=== PATIENT | male | born 1975 | race Caucasian/White ===

== ENCOUNTER 2016-10-01 13:08 | Emergency (ER) | payer BC ==
[2016-10-01 13:41] VITALS: BP 129/85
[2016-10-01] MEDS ORDERED: Acetaminophen/HYDROcodone 325-5 MG Tab PO ONE (14:24)
--- NOTE | 2016-10-01 14:48 | EDM.PDOC ---
ED HPI GENERAL MEDICAL PROBLEM - General Chief Complaint: Lower Extremity Injury/Pain Stated Complaint: LOWER LEG PAIN Time Seen by Provider: 10/01/16 13:55 Source of Information: Reports: Patient History Limitations: Reports: No Limitations - History of Present Illness INITIAL COMMENTS - FREE TEXT/NARRATIVE: Patient is a 41 year old male who presents to the E.D. complaining of pain to the right calf that started last night. Their were no precipitation factors. States he has history of varicose veins to both his lower legs. The right calf became swollen with increased pain incomparison to the left. He did massage the area only making it worse. Swelling has diminished with arrival to the E.D. Denies redness, increased warmth, wounds, cp, sob, n/t, or any additional complaints. He has no history of DVT/PE. Right Lower Leg Pain Score (Numeric/FACES): 6 - Related Data Allergies Allergy/AdvReac Type Severity Reaction Status Date / Time bee pollen Allergy Swelling Verified 08/25/14 09:16 pregabalin [From Lyrica] Allergy Hallucinati Verified 08/25/14 09:16 ons Home Meds: Home Meds Esomeprazole [NexIUM] 20 mg PO DAILY 08/25/14 [History] Cetirizine [ZyrTEC] 10 mg PO DAILY 10/01/16 [History] ClonazePAM [KlonoPIN] 0.75 mg PO BID 10/01/16 [History] traZODone 75 mg PO DAILY 10/01/16 [History] Past Medical History - Past Health History Medical/Surgical History: Denies Medical/Surgical History Psychiatric History: Reports: ADD, Anxiety Dermatologic History: Reports: Cellulitis - Past Surgical History GI Surgical History: Reports: Cholecystectomy Other Musculoskeletal Surgeries/Procedures:: knee surgery x7 and carpal tunnel surgery Social & Family History - Tobacco Use Smoking Status *Q: Former Smoker Used Tobacco, but Quit: Yes Month Tobacco Last Used: 24 Second Hand Smoke Exposure: No - Caffeine Use Caffeine Use: Reports: Coffee, Energy Drinks - Recreational Drug Use Recreational Drug Use: No Review of Systems - Review of Systems Review Of Systems: ROS reveals no pertinent complaints other than HPI. ED EXAM, GENERAL - Physical Exam Exam: See Below Exam Limited By: No Limitations General Appearance: Alert, WD/WN, No Apparent Distress Ears: Hearing Grossly Normal Nose: Normal Inspection Throat/Mouth: Normal Voice, No Airway Compromise Neck: Normal Inspection, Supple Respiratory/Chest: No Respiratory Distress, Lungs Clear, Normal Breath Sounds, No Accessory Muscle Use Cardiovascular: Normal Peripheral Pulses, Regular Rate, Rhythm, No Rub Peripheral Pulses: 2+: Radial (L), Posterior Tibial (R), Dorsalis Pedis (R) Back Exam: Normal Inspection, Full Range of Motion Extremities: Normal Inspection, Normal Range of Motion, No Pedal Edema, Normal Capillary Refill, Leg Pain (right medial/posterior calf. No swelling, redness, wounds, sensory/motor changes. No difference in comparison to the left. Minimal pain with palpation. ) Neurological: Alert, Oriented, CN II-XII Intact, Normal Cognition, No Motor/ Sensory Deficits Psychiatric: Normal Affect, Normal Mood Skin Exam: Warm, Dry, Intact, Normal Color Course - Vital Signs Last Recorded V/S: Last Vital Signs Temp 98 F 10/01/16 13:38 Pulse 73 10/01/16 13:38 Resp 16 10/01/16 13:38 BP 129/85 10/01/16 13:38 Pulse Ox 100 10/01/16 13:38 - Orders/Labs/Meds Labs: Laboratory Tests 10/01/16 10/01/16 10/01/16 Range/Units 14:41 14:41 14:41 WBC 8.74 (4.23-9.07) K/mm3 RBC 5.12 (4.63-6.08) M/mm3 Hgb 15.3 (13.7-17.5) gm/L Hct 44.0 (40.1-51.0) % MCV 85.9 (79.0-92.2) fl MCH 29.9 (25.7-32.2) pg MCHC 34.8 (32.2-35.5) g/dl RDW Std Deviation 40.5 (35.1-43.9) fL Plt Count 277 (163-337) K/mm3 MPV 9.6 (9.4-12.3) fl Neut % (Auto) 62.0 (34.0-67.9) % Lymph % (Auto) 27.3 (21.8-53.1) % [place] % (Auto) 7.6 (5.3-12.2) % Eos % (Auto) 2.4 (0.8-7.0) Baso % (Auto) 0.5 (0.1-1.2) % Neut # (Auto) 5.42 H (1.78-5.38) K/mm3 Lymph # (Auto) 2.39 (1.32-3.57) K/mm3 [place] # (Auto) 0.66 (0.30-0.82) K/mm3 Eos # (Auto) 0.21 (0.04-0.54) K/mm3 Baso # (Auto) 0.04 (0.01-0.08) K/mm3 D-Dimer, Quantitative < 0.19 L (0.19-0.59) mg/L Sodium 142 (136-145) mEq/L Potassium 3.8 (3.5-5.1) mEq/L Chloride 105 (98-107) mEq/L Carbon Dioxide 27 (21-32) mEq/L Anion Gap 13.8 (5-15) BUN 14 (7-18) mg/dL Creatinine 0.8 (0.7-1.3) mg/dL Est Cr Clr Drug Dosing 134.72 mL/min Estimated GFR (MDRD) > 60 (>60) mL/min BUN/Creatinine Ratio 17.5 (14-18) Glucose 91 (74-106) mg/dL Calcium 9.2 (8.5-10.1) mg/dL Meds: Medications Discontinued Medications Generic Name Dose Route Start Last Admin Trade Name Freq PRN Reason Stop Dose Admin Hydrocodone Bitart/Acetaminophen 1 tab 10/01/16 14:24 10/01/16 14:31 [place] 325-5 Mg PO 10/01/16 14:25 1 tab ONETIME ONE Administration - Re-Assessments/Exams Free Text/Narrative Re-Assessment/Exam: Ordered CBC, chem 14, CRP, and d-dimer. For pain [place] 53 25. 10/01/16 15:31 Labs reviewed: Sodium 142, potassium 3.8, CO2 27, AG 13.8, creatinine 0.8, d-dimer less than 0.19, white blood cell count 8.74, platelet count 277, hemoglobin 15.3,. Will discharge patient home with instructions as documented. Patient is not have a DVT. Most likely etiology current complaint is varicose veins. At this point we'll go ahead and provide crutches due to increasing pain with ambulation. Ramo wrap to be applied. Departure - Departure Time of Disposition: 15:32 Disposition: Home, Self-Care 01 Condition: Good Clinical Impression: Right calf pain - Discharge Information Instructions: Crutch Use, [id number] Referrals: Lin Mckeon DO [Primary Care Provider] - Forms: ED Department Discharge Additional Instructions: Utilize crutches to ambulate. Suggest being not weightbearing for the next 3 days. Thereafter advance as tolerated. Utilize Tylenol and ibuprofen in alternating fashion for pain. Apply ice to the affected area as needed. Follow- up with PCP this coming week if symptoms are not resolving. Return to the ED for any new or worsening symptoms.
== END 2016-10-01 15:45 | disposition home or self-care (01) ==
LOC: JD.ED 13:08
DX: M79.661 Pain in right lower leg (principal); F41.9 Anxiety disorder, unspecified; Z90.49 Acquired absence of other specified parts of digestive tract; Z87.891 Personal history of nicotine dependence; Z98.890 Other specified postprocedural states; Z79.899 Other long term (current) drug therapy; Z88.8 Allergy status to other drugs, medicaments and biological substances; Z91.030 Bee allergy status
CPT/HCPCS: 36415; 80048; 85025; 85379; 99283; A9270

== ENCOUNTER 2018-12-16 08:53 | Emergency (ER) | payer BC ==
[2018-12-16 09:07] VITALS: BP 142/93; PULSE 81
[2018-12-16] MEDS ORDERED: HYDROmorphone 1 MG/ML Syringe IM ONE (09:18)
[2018-12-16] MEDS ORDERED: Ketorolac 60 MG/2 ML SDV IM ONE (09:18)
--- NOTE | 2018-12-16 09:25 | EDM.PDOC ---
ED HPI GENERAL MEDICAL PROBLEM - General Chief Complaint: Upper Extremity Injury/Pain Stated Complaint: LEFT SHOULDER PAIN Time Seen by Provider: 12/16/18 09:03 Source of Information: Reports: Patient History Limitations: Reports: No Limitations - History of Present Illness INITIAL COMMENTS - FREE TEXT/NARRATIVE: The patient presents with left shoulder pain. He says this started yesterday morning when he woke up. He did some stretching and he went to work and it was okay. This morning he has severe pain and any movement makes it worse. He did not injure it in any way. 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 He says this is normally his good shoulder. He has had trouble with his right shoulder before. He has no fever, chills, cough, chest pain or shortness of breath. He has no numbness or weakness in his shoulder. He says it just hurts when he moves it. He is right handed. Onset: Gradual Duration: Day(s): Location: Reports: Upper Extremity, Left (Shoulder) Quality: Reports: Sharp Severity: Severe Improves with: Reports: Immobilization Worsens with: Reports: Movement Context: Denies: Trauma Associated Symptoms: Reports: No Other Symptoms Left Shoulder Pain Score (Numeric/FACES): 7 - Related Data Allergies Allergy/AdvReac Type Severity Reaction Status Date / Time bee pollen Allergy Swelling Verified 12/16/18 09:14 pregabalin [From Lyrica] Allergy Hallucinati Verified 12/16/18 09:14 ons Home Meds: Home Meds Esomeprazole [NexIUM] 20 mg PO DAILY 08/25/14 [History] traZODone 75 mg PO DAILY 10/01/16 [History] Hydrocodone/Acetaminophen [Hydrocodon-Acetaminophen 5-325] 1 - 2 each PO Q6HR PRN #10 tablet 12/16/18 [Rx] Methylphenidate HCl [Ritalin] 10 mg PO DAILY 12/16/18 [History] Multivitamin [Multivitamins] 1 tab PO DAILY 12/16/18 [History] Naproxen [Naprosyn] 500 mg PO Q12HR PRN #30 tab 12/16/18 [Rx] Past Medical History - Past Health History Medical/Surgical History: Denies Medical/Surgical History Psychiatric History: Reports: ADD, Anxiety Dermatologic History: Reports: Cellulitis - Past Surgical History GI Surgical History: Reports: Cholecystectomy Other GI Surgeries/Procedures: polynaidal cyst removal Other Musculoskeletal Surgeries/Procedures:: knee surgery x7 and carpal tunnel surgery Social & Family History - Family History Family Medical History: Noncontributory - Caffeine Use Caffeine Use: Reports: Coffee, Energy Drinks, Soda - Recreational Drug Use Recreational Drug Use: No Review of Systems - Review of Systems Review Of Systems: See Below Constitutional: Reports: No Symptoms Eyes: Reports: No Symptoms Ears: Reports: No Symptoms Nose: Reports: No Symptoms Mouth/Throat: Reports: No Symptoms Respiratory: Reports: No Symptoms Cardiovascular: Reports: No Symptoms GI/Abdominal: Reports: No Symptoms Genitourinary: Reports: No Symptoms Musculoskeletal: Reports: Shoulder Pain (Left) Neurological: Reports: No Symptoms ED EXAM, GENERAL - Physical Exam Exam: See Below Exam Limited By: No Limitations General Appearance: Alert, No Apparent Distress Ears: Normal External Exam Nose: Normal Inspection Head: Atraumatic, Normocephalic Neck: Normal Inspection Respiratory/Chest: No Respiratory Distress Extremities: Other (Pain upon palpation to the top of the shoulder and lateral left shoulder. 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 Motion very limited due to pain.) Course - Vital Signs Last Recorded V/S: Last Vital Signs Temp 97.9 F 12/16/18 09:04 Pulse 81 12/16/18 09:04 Resp 16 12/16/18 09:04 BP 142/93 H 12/16/18 09:04 Pulse Ox 100 12/16/18 09:04 - Orders/Labs/Meds Meds: Medications Discontinued Medications Generic Name Dose Route Start Last Admin Trade Name Deidre PRN Reason Stop Dose Admin Hydromorphone HCl 1 mg 12/16/18 09:18 12/16/18 09:39 Dilaudid IM 12/16/18 09:19 1 mg ONETIME ONE Administration Ketorolac Tromethamine 60 mg 12/16/18 09:18 12/16/18 09:39 Toradol IM 12/16/18 09:19 60 mg ONETIME ONE Administration - Re-Assessments/Exams Free Text/Narrative Re-Assessment/Exam: 12/16/18 09:28 I ordered dilaudid 1mg IM, toradol 60mg IM and an x-ray. 12/16/18 10:38 His x-ray looks good. I will refer him to OT and Dr Becerril and give him something for pain and antiinflammatory. Departure - Departure Time of Disposition: 10:40 Disposition: Home, Self-Care 01 Condition: Good Clinical Impression: Left shoulder strain Qualifiers: Encounter type: initial encounter Qualified Code(s): S46.912A - Strain of unspecified muscle, fascia and tendon at shoulder and upper arm level, left arm , initial encounter - Discharge Information *PRESCRIPTION DRUG MONITORING PROGRAM REVIEWED*: No *COPY OF PRESCRIPTION DRUG MONITORING REPORT IN PATIENT FOREST: No Prescriptions: Hydrocodone/Acetaminophen [Hydrocodon-Acetaminophen 5-325] 1 - 2 each PO Q6HR PRN #10 tablet PRN Reason: Pain Naproxen [Naprosyn] 500 mg PO Q12HR PRN #30 tab PRN Reason: Pain Referrals: PCP,None [Primary Care Provider] - Kwasi Becerril MD [Physician] - 1 Week Forms: ED Department Discharge Additional Instructions: Ice your shoulder for 15 minutes 3 times per day for 2 days. Take the naprosyn every 12 hours as needed for pain. If that does not help, try the hydrocodone. Please return if you are worse. Follow up with Dr Becerril within 1 to 2 weeks.
--- NOTE | 2018-12-16 10:31 | CR ---
Left shoulder: Three views of the left shoulder were obtained Comparison: No prior shoulder imaging. Acromioclavicular joint and glenohumeral joint appear within normal limits. No fracture or other bony abnormality is identified. Impression: 1. Nothing acute is appreciated on left shoulder study. Diagnostic code #1
== END 2018-12-16 10:53 | disposition home or self-care (01) ==
LOC: JD.ED 08:53
DX: S46.912A Strain of unspecified muscle, fascia and tendon at shoulder and upper arm level, left arm, initial encounter (principal); F41.9 Anxiety disorder, unspecified; Z91.030 Bee allergy status; Z88.8 Allergy status to other drugs, medicaments and biological substances; Z79.899 Other long term (current) drug therapy; X58.XXXA Exposure to other specified factors, initial encounter
CPT/HCPCS: 73030; 96372; 99283; J1170; J1885

== ENCOUNTER 2020-07-11 09:34 | Emergency (ER) | payer BC ==
--- NOTE | 2020-07-11 09:45 | EDM.PDOC ---
ED HPI GENERAL MEDICAL PROBLEM - General Chief Complaint: Upper Extremity Injury/Pain Stated Complaint: DISLOCATED RT SHOULDER Time Seen by Provider: 07/11/20 09:45 Source of Information: Reports: Patient History Limitations: Reports: No Limitations - History of Present Illness INITIAL COMMENTS - FREE TEXT/NARRATIVE: 45-year-old male presents to the ED in the accompaniment of his . He reports severe pain right shoulder. States that he has dislocated the right shoulder once in the past. He states that it has occurred after sleeping very deeply and suffered a spontaneous anterior dislocation of his right shoulder in the past. He awoke around 3:00 this morning with severe pain right shoulder and had to sit up in the easy chair the rest the night. He is unable to abduct the right shoulder at all. The right shoulder is not had any previous surgery. No recent injuries. Denies numbness tingling into his right hand. Associated nausea related to the pain and near syncope. No history of seizure disorder. Patient does present to the ED with his right arm in a sling. Onset: Today, Sudden Onset Date: 07/11/20 Onset Time: 03:00 Duration: Hour(s):, Constant, Getting Worse Location: Reports: Upper Extremity, Right (Right shoulder pain anteriorly.) Quality: Reports: Ache, Throbbing Severity: Moderate (8 out of 10.) Improves with: Reports: Rest Worsens with: Reports: Other (Any attempt to abduct the shoulder increase the pain severely.) Context: Denies: Activity, Exercise, Lifting, Sick Contact, Trauma, Other Associated Symptoms: Reports: No Other Symptoms. Denies: Confusion, Chest Pain, Cough, cough w sputum, Diaphoresis, Fever/Chills, Headaches, Loss of Appetite, Malaise, Nausea/Vomiting, Rash, Seizure, Shortness of Breath, Syncope Treatments APPLICATIONS SUPPORT SPECIALIST: Reports: Other (see below) (None.) Right Shoulder Pain Score (Numeric/FACES): 9 - Related Data Allergies Allergy/AdvReac Type Severity Reaction Status Date / Time bee pollen Allergy Swelling Verified 07/11/20 09:40 pregabalin [From Lyrica] Allergy Hallucinati Verified 07/11/20 09:40 ons Home Meds: Home Meds Esomeprazole [NexIUM] 20 mg PO DAILY 08/25/14 [History] traZODone 100 mg PO BEDTIME 10/01/16 [History] Methylphenidate HCl [Ritalin] 36 mg PO DAILY 12/16/18 [History] Multivitamin [Multivitamins] 1 tab PO DAILY 12/16/18 [History] oxyCODONE HCl/Acetaminophen [Percocet 5-325 mg Tablet] 1 - 2 each PO Q4H PRN #20 tablet 07/11/20 [Rx] Past Medical History - Past Health History Medical/Surgical History: Denies Medical/Surgical History Psychiatric History: Reports: ADD, Anxiety, Other (See Below) (Chronic insomnia) Dermatologic History: Reports: Cellulitis - Past Surgical History GI Surgical History: Reports: Cholecystectomy Other GI Surgeries/Procedures: polynaidal cyst removal Other Musculoskeletal Surgeries/Procedures:: knee surgery x7 and carpal tunnel surgery Social & Family History - Family History Family Medical History: No Pertinent Family History - Caffeine Use Caffeine Use: Reports: Coffee, Energy Drinks, Soda - Living Situation & Occupation Living situation: Reports: Occupation: Employed Review of Systems - Review of Systems Review Of Systems: See Below Constitutional: Denies: Chills, Diaphoresis, Fever, Weakness, Other Eyes: Reports: No Symptoms Ears: Reports: No Symptoms Nose: Reports: No Symptoms Mouth/Throat: Reports: No Symptoms Respiratory: Reports: No Symptoms Cardiovascular: Reports: No Symptoms GI/Abdominal: Reports: No Symptoms Genitourinary: Reports: No Symptoms Musculoskeletal: Reports: Other (Currently suffering severe pain right shoulder.) Skin: Reports: No Symptoms Neurological: Reports: Syncope (Near syncope due to the severity of the pain in his right shoulder this morning.). Denies: Confusion, Dizziness, Headache, Numbness, Tingling Psychiatric: Reports: Anxiety, Other (History of attention deficit disorder. History of chronic insomnia.) ED EXAM, GENERAL - Physical Exam Exam: See Below Exam Limited By: No Limitations General Appearance: Alert, WD/WN, Moderate Distress, Other (Temperature is 36.1. Heart rate 74 and sinus. Respiratory was 18 with O2 sats of 100% room air. BP 153/85.) Eye Exam: Bilateral Eye: Normal Inspection (No blepharal pallor or scleral icterus.), PERRL Throat/Mouth: Normal Inspection, Normal Lips, Normal Oropharynx Head: Atraumatic, Normocephalic Neck: Normal Inspection, Supple, Non-Tender, Full Range of Motion. No: Carotid Bruit, Lymphadenopathy (L), Lymphadenopathy (R) Respiratory/Chest: No Respiratory Distress, Lungs Clear, Normal Breath Sounds, No Accessory Muscle Use Cardiovascular: Normal Peripheral Pulses, Regular Rate, Rhythm, No Edema, No Gallop, No Murmur, No Rub Peripheral Pulses: 3+: Carotid (L), Carotid (R), Radial (L), Radial (R) GI/Abdominal: Normal Bowel Sounds, Soft, Non-Tender, No Organomegaly, No Distention, Pelvis Stable Extremities: Other (He attends the ED with his right arm in a sling. He does have some fullness of the anterior aspect of the right shoulder. Clinically does not appear to be dislocated. Possibly subluxed.) Neurological: Alert, Oriented, CN II-XII Intact, Normal Cognition Psychiatric: Normal Affect, Normal Mood Skin Exam: Warm, Dry, Intact, Normal Color, No Rash Course - Vital Signs Last Recorded V/S: Last Vital Signs Temp 36.4 C 07/11/20 14:53 Pulse 63 07/11/20 14:53 Resp 12 07/11/20 14:53 BP 134/93 H 07/11/20 14:53 Pulse Ox 99 07/11/20 14:53 - Orders/Labs/Meds Meds: Medications Discontinued Medications Generic Name Dose Route Start Last Admin Trade Name Deidre PRN Reason Stop Dose Admin Bupivacaine HCl 10 ml 07/11/20 13:53 07/11/20 13:55 Bupivacaine 0.5% 10 Ml Sdv INJECT 07/11/20 13:54 10 ml ONETIME ONE Administration Diazepam 2.5 mg 07/11/20 11:29 07/11/20 11:56 Diazepam 10 Mg/2 Ml Syringe IVPUSH 07/11/20 11:30 2.5 mg ONETIME ONE Administration Hydromorphone HCl 0.5 mg 07/11/20 09:49 07/11/20 10:03 Hydromorphone 0.5 Mg/0.5 Ml Syringe IVPUSH 07/11/20 09:50 0.5 mg ONETIME ONE Administration Hydromorphone HCl 0.5 mg 07/11/20 10:35 07/11/20 10:38 Hydromorphone 0.5 Mg/0.5 Ml Syringe IVPUSH 07/11/20 10:36 0.5 mg ONETIME ONE Administration Hydromorphone HCl 1 mg 07/11/20 11:29 07/11/20 11:54 Hydromorphone 1 Mg/Ml Syringe IVPUSH 07/11/20 11:30 1 mg ONETIME ONE Administration Dextrose/Sodium Chloride 1,000 mls @ 150 mls/hr 07/11/20 10:00 07/11/20 10:05 Dextrose 5%-Normal Saline IV 150 mls/hr ASDIRECTED [facility] Administration Metoclopramide HCl 7.5 mg 07/11/20 09:49 07/11/20 10:00 Metoclopramide 10 Mg/2 Ml Sdv IVPUSH 07/11/20 09:50 7.5 mg ONETIME ONE Administration Propofol Confirm 07/11/20 13:43 Propofol 200 Mg/20 Ml Sdv Administered 07/11/20 13:44 Dose 200 [email or web address] - Radiology Interpretation Free Text/Narrative:: 45-year-old male presents to the ED with severe right shoulder pain. He is questioning whether or not he is dislocated. He still wearing his T-shirt and is in a sling at the time of exam. He states he woke with severe pain right shoulder about 3:00 this morning. It has been dislocated once in the past. He was unable to abduct his shoulder at home. On exam here he has good radial pulses. Denies any paresthesias below the elbow. Significant pain right anterior shoulder with fullness appreciated on examination through his T-shirt. Does not clinically it appeared to be dislocated. It may be subluxed. Plan IV D5 normal saline at 150 mils per hour. Dilaudid 0.5 mg IV for pain relief with Reglan 7.5 mg IV. Three-view x-ray of the right shoulder to be obtained. - Re-Assessments/Exams Free Text/Narrative Re-Assessment/Exam: 07/11/20 10:56: I discussed the findings of the x-ray with the patient. There was no evidence of shoulder dislocation but it may well be subluxed as it appears that he has a chronic rotator cuff tear. There is increased space between the acromion and the humeral head. There is minimal degenerative change at the acromioclavicular joint. Plan will be to let the Dilaudid that he is currently received work and then will attempt to slowly raise both arms to 90 degrees and hope that the shoulder slips back into place. If this fails we will have to call anesthesia to provide propofol for brief anesthesia. 07/11/20 11:30 patient is still experiencing too much pain to try reduction of his subluxed right shoulder. I suspect it is impinged on the glenoid labrum due to the severity of pain that he is experiencing. Plan repeat Dilaudid 0.5 mg IV with Valium 2.5 mg IV. 07/11/20 12:25 attempt to reduce this right shoulder without the aid of an anesthetic did not meet with any success. Patient had significant pain throughout the range of motion up to 90 degrees of flexion of the shoulder joint when lying supine. It appears that he may well have a piece of the glenoid labrum underneath the portion of the humeral head to be causing such severe pain. I will therefore call anesthesia to see if they can provide some propofol to allow appropriate reduction of suspected subluxated shoulder. 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 Chandrashivam Kuhn. Patient received propofol intravenously which provided satisfactory sedation so that I could put the patient's right shoulder through normal range of motion. There was no evidence of impingement with normal range of motion once I put the patient through normal range of motion. I injected the anterior aspect of the humerus joint with 10 cc of 0.5% bupivacaine topically provide relief of pain in the right shoulder. 07/11/20 14:41 patient is awake and oriented to person place and time. He states that he still has significant pain in his right shoulder with movement I sharp stabbing pain. Patient will be placed back in his sling. 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 Patient will be given Percocet tabs from the [employer] machine 5/325 mg strength 1 or 2 every 4-6 hours as needed for pain relief x20. Advise follow-up with Dr. Becerril orthopedic surgeon in regards to having arthroscopic surgery right shoulder for suspect glenoid labral tear. Suspect associated rotator cuff tear. Departure - Departure Time of Disposition: 14:38 Disposition: Home, Self-Care 01 Condition: Fair Clinical Impression: Shoulder subluxation, right Qualifiers: Encounter type: initial encounter Qualified Code(s): S43.001A - Unspecified subluxation of right shoulder joint, initial encounter - Discharge Information *PRESCRIPTION DRUG MONITORING PROGRAM REVIEWED*: Not Applicable *COPY OF PRESCRIPTION DRUG MONITORING REPORT IN PATIENT FOREST: Not Applicable Prescriptions: oxyCODONE HCl/Acetaminophen [Percocet 5-325 mg Tablet] 1 - 2 each PO Q4H PRN #20 tablet PRN Reason: pain relief. Instructions: Shoulder Pain, [id number] Referrals: PCP,None [Primary Care Provider] - Forms: ED Department Discharge, ED Return to Work/School Form Additional Instructions: Evaluation in the emergency room today in regards to subluxation of right shoulder with significant pain and limited mobility since awakening with pain 0300 hrs. this morning. Previous history of a dislocation anteriorly. The x- rays done through the ER do not reveal any abnormalities of the humeral head and minimal arthritic change at the acromioclavicular joint which is where your collarbone joins onto your shoulder blade. There is an increased space between the acromion process of the shoulder blade and the humeral head suggesting that you likely have suffered a rotator cuff tear in the past. You received intravenous Dilaudid x3 doses as well as a small dose of Valium to try and help with the pain and allow reduction of your right shoulder impingement and subluxation. However this failed and therefore we had to wait for nurse [employer] advisor to provide propofol intravenously which he did. I was able to obtain full range of motion of your shoulder while under anesthetic. I also injected the joint with bupivacaine a small dose of local anesthetic to help ease the pain. You are still having significant discomfort in your right shou lder post reduction. This suggest that there is still mild impingement likely with the humeral head stuck on a piece of cartilage from the glenoid labrum anterior aspect of the shoulder joint. I would suggest follow-up with Dr. Becerril orthopedic surgeon-with a view to possible arthroscopy to clean up the shoulder joint and assess the damage to the rotator cuff. Please call his office at [phone] to arrange an appointment. Right shoulder immobilizer or sling until comfortable. Pain medication Percocet 06/3250 or 2 tablets every 4-6 hours necessary for pain relief in combination with Motrin 600 mg every 6 hours. Sepsis Event Note (ED) - Focused Exam Vital Signs: Vital Signs Temp Pulse Resp BP Pulse Ox 07/11/20 14:53 36.4 C 63 12 134/93 H 99 07/11/20 13:45 68 18 125/73 100 07/11/20 10:17 59 L 16 125/85 100 07/11/20 09:35 36.1 C 74 18 153/85 H 100
[2020-07-11] MEDS ORDERED: Metoclopramide 10 MG/2 ML SDV IVPUSH ONE (09:49)
[2020-07-11] MEDS ORDERED: HYDROmorphone 0.5 MG/0.5 ML Syringe IVPUSH ONE ×2 (09:49→10:35)
[2020-07-11] MEDS ORDERED: Dextrose 5%-0.9% NaCl 1,000 ML IV SCH (10:00)
--- NOTE | 2020-07-11 11:11 | CR ---
Right shoulder: 3 views of the right shoulder were obtained. Comparison: No prior right shoulder study is available. Acromioclavicular joint shows mild narrowing. No abnormal inferior spurring is seen. Glenohumeral joint is normal with no dislocation seen. No acute fracture is noted. No abnormal soft tissue calcifications are seen. Impression: 1. Mild joint space narrowing within the right acromioclavicular joint. 2. Right shoulder study is otherwise unremarkable. Diagnostic code #2
[2020-07-11] MEDS ORDERED: HYDROmorphone 1 MG/ML Syringe IVPUSH ONE (11:29)
--- NOTE | 2020-07-11 13:42 | PCM.PREANE ---
Preanesthetic Assessment - Procedure Proposed Procedure: displaced right shoulder - Anesthesia/Transfusion/Family Hx Anesthesia History: Prior Anesthesia Without Reaction Family History of Anesthesia Reaction: No Transfusion History: No Prior Transfusion(s) - Review of Systems General: Fatigue, Malaise Pulmonary: No Symptoms Cardiovascular: No Symptoms Gastrointestinal: No Symptoms Neurological: No Symptoms Other: Reports: None - Physical Assessment NPO Status Date: 07/10/20 NPO Status Time: 00:00 Vital Signs: Last Vital Signs Temp 36.1 C 07/11/20 09:35 Pulse 59 L 07/11/20 10:17 Resp 16 07/11/20 10:17 BP 125/85 07/11/20 10:17 Pulse Ox 100 07/11/20 10:17 Height: 1.83 m Weight: 91.762 kg ASA Class: 2 Mental Status: Alert & Oriented x3 Airway Class: Mallampati = 1 Dentition: Reports: Normal Dentition Thyro-Mental Finger Breadths: 3 Mouth Opening Finger Breadths: 3 ROM/Head Extension: Full Lungs: Clear to Auscultation, Normal Respiratory Effort Cardiovascular: Regular Rate, Regular Rhythm - Allergies Allergies/Adverse Reactions: Allergies Allergy/AdvReac Type Severity Reaction Status Date / Time bee pollen Allergy Swelling Verified 07/11/20 09:40 pregabalin [From Lyrica] Allergy Hallucinati Verified 07/11/20 09:40 ons - Blood Blood Available: No Product(s) Available: None - Anesthesia Plan Pre-Op Medication Ordered: None - Acknowledgements Anesthesia Type Planned: MAC Pt an Appropriate Candidate for the Planned Anesthesia: Yes Alternatives and Risks of Anesthesia Discussed w Pt/Guardian: Yes Pt/Guardian Understands and Agrees with Anesthesia Plan: Yes PreAnesthesia Questionnaire - Past Health History Medical/Surgical History: Denies Medical/Surgical History Cardiovascular History: Reports: Other (See Below) Other Cardiovascular History: PVC's. Gastrointestinal History: Reports: GERD Musculoskeletal History: Reports: Fracture Other Musculoskeletal History: shoulder dislocation. Psychiatric History: Reports: ADD, Anxiety, Other (See Below) (Chronic insomnia) Dermatologic History: Reports: Cellulitis - Infectious Disease History Infectious Disease History: Reports: Chicken Pox - Past Surgical History GI Surgical History: Reports: Cholecystectomy Other GI Surgeries/Procedures: polynaidal cyst removal Other Musculoskeletal Surgeries/Procedures:: knee surgery x7 and carpal tunnel surgery - SUBSTANCE USE Tobacco Use Status *Q: Current Every Day Tobacco User Tobacco Use Within Last Twelve Months: Vaping Second Hand Smoke Exposure: No Days Per Week of Alcohol Use: 1 Number of Drinks Per Day: 0 Total Drinks Per Week: 0 Recreational Drug Use History: No - HOME MEDS Home Medications: Home Meds Esomeprazole [NexIUM] 20 mg PO DAILY 08/25/14 [History] traZODone 100 mg PO BEDTIME 10/01/16 [History] Methylphenidate HCl [Ritalin] 36 mg PO DAILY 12/16/18 [History] Multivitamin [Multivitamins] 1 tab PO DAILY 12/16/18 [History] - CURRENT (IN HOUSE) MEDS Current Meds: Current Medications Dextrose/Sodium Chloride (Dextrose 5%-Normal Saline) 1,000 mls @ 150 mls/hr IV ASDIRECTED [facility] Last Admin: 07/11/20 10:05 Dose: 150 mls/hr Documented by: Discontinued Medications Diazepam (Diazepam 10 Mg/2 Ml Syringe) 2.5 mg IVPUSH ONETIME ONE Stop: 07/11/20 11:30 Last Admin: 07/11/20 11:56 Dose: 2.5 mg Documented by: Hydromorphone HCl (Hydromorphone 0.5 Mg/0.5 Ml Syringe) 0.5 mg IVPUSH ONETIME ONE Stop: 07/11/20 09:50 Last Admin: 07/11/20 10:03 Dose: 0.5 mg Documented by: Hydromorphone HCl (Hydromorphone 0.5 Mg/0.5 Ml Syringe) 0.5 mg IVPUSH ONETIME ONE Stop: 07/11/20 10:36 Last Admin: 07/11/20 10:38 Dose: 0.5 mg Documented by: Hydromorphone HCl (Hydromorphone 1 Mg/Ml Syringe) 1 mg IVPUSH ONETIME ONE Stop: 07/11/20 11:30 Last Admin: 07/11/20 11:54 Dose: 1 mg Documented by: Metoclopramide HCl (Metoclopramide 10 Mg/2 Ml Sdv) 7.5 mg IVPUSH ONETIME ONE Stop: 07/11/20 09:50 Last Admin: 07/11/20 10:00 Dose: 7.5 mg Documented by:
[2020-07-11] MEDS ORDERED: Propofol 200 MG/20 ML SDV ONE (13:43)
[2020-07-11] MEDS ORDERED: Bupivacaine 0.5% 10 ML SDV INJECT ONE (13:53)
--- NOTE | 2020-07-11 14:08 | PCM48HPAN ---
Post Anesthesia Note - EVALUATION WITHIN 48HRS OF ANESTHETIC Vital Signs in Normal Range: Yes Patient Participated in Evaluation: Yes Respiratory Function Stable: Yes Airway Patent: Yes Cardiovascular Function Stable: Yes Hydration Status Stable: Yes Pain Control Satisfactory: Yes Nausea and Vomiting Control Satisfactory: Yes Mental Status Recovered: Yes Vital Signs: Last Vital Signs Temp 36.1 C 07/11/20 09:35 Pulse 68 07/11/20 13:45 Resp 18 07/11/20 13:45 BP 125/73 07/11/20 13:45 Pulse Ox 100 07/11/20 13:45
[2020-07-11 14:58] VITALS: BP 134/93; PULSE 63
== END 2020-07-11 14:55 | disposition home or self-care (01) ==
LOC: JD.ED 09:34
DX: S43.001A Unspecified subluxation of right shoulder joint, initial encounter (principal); Z91.030 Bee allergy status; Z88.8 Allergy status to other drugs, medicaments and biological substances; Z79.899 Other long term (current) drug therapy; X58.XXXA Exposure to other specified factors, initial encounter
CPT/HCPCS: 23650; 73030; 96374; 96375; 96376; 99283; J1170; J2704; J2765; J3360; J3490; J7042; 01620; 23655; 99284

== ENCOUNTER 2020-07-15 10:57 | Emergency (ER) | payer BC ==
[2020-07-15 11:15] VITALS: BP 142/88; PULSE 90
--- NOTE | 2020-07-15 11:28 | EDM.PDOC ---
ED HPI GENERAL MEDICAL PROBLEM - General Chief Complaint: Upper Extremity Injury/Pain Stated Complaint: RT SHOULDER PAIN AFTER INJECTION Time Seen by Provider: 07/15/20 11:04 Source of Information: Reports: Patient History Limitations: Reports: No Limitations - History of Present Illness INITIAL COMMENTS - FREE TEXT/NARRATIVE: 45-year-old male presents the emergency department today with complaints of right shoulder pain post cortisone injection. Patient had his right shoulder injection by Dr. Esquivel, orthopedic surgeon at [facility] just prior to arrival. The patient was then sent home. He states that his pain is now an 8 out of 10 and he is out of the 20 Percocet tabs that were prescribed to him 4 days ago. He states he ran out of those and 2 days time. 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 Right Shoulder Pain Score (Numeric/FACES): 8 - Related Data Allergies Allergy/AdvReac Type Severity Reaction Status Date / Time bee pollen Allergy Swelling Verified 07/15/20 11:07 pregabalin [From Lyrica] Allergy Hallucinati Verified 07/15/20 11:07 ons Home Meds: Home Meds Esomeprazole [NexIUM] 20 mg PO DAILY 08/25/14 [History] traZODone 100 mg PO BEDTIME 10/01/16 [History] Methylphenidate HCl [Ritalin] 36 mg PO DAILY 12/16/18 [History] Multivitamin [Multivitamins] 1 tab PO DAILY 12/16/18 [History] oxyCODONE HCl/Acetaminophen [Percocet 5-325 mg Tablet] 1 - 2 each PO Q4H PRN #20 tablet 07/11/20 [Rx] Past Medical History - Past Health History Medical/Surgical History: Denies Medical/Surgical History HEENT History: Reports: Impaired Vision Cardiovascular History: Reports: Other (See Below) Other Cardiovascular History: PVC's. Respiratory History: Reports: None Gastrointestinal History: Reports: GERD Genitourinary History: Reports: None Musculoskeletal History: Reports: Fracture Other Musculoskeletal History: shoulder dislocation. Neurological History: Reports: None Psychiatric History: Reports: ADD, Anxiety, Other (See Below) Endocrine/Metabolic History: Reports: None Hematologic History: Reports: None Immunologic History: Reports: None Oncologic (Cancer) History: Reports: None Dermatologic History: Reports: Cellulitis - Infectious Disease History Infectious Disease History: Reports: Chicken Pox - Past Surgical History HEENT Surgical History: Reports: Oral Surgery GI Surgical History: Reports: Cholecystectomy Other GI Surgeries/Procedures: polynaidal cyst removal Other Musculoskeletal Surgeries/Procedures:: knee surgery x7 and carpal tunnel surgery Social & Family History - Family History Family Medical History: No Pertinent Family History - Caffeine Use Caffeine Use: Reports: Coffee - Recreational Drug Use Recreational Drug Use: Yes Drug Use in Last 12 Months: No Recreational Drug Type: Reports: Cocaine, Marijuana/Hashish, Methamphetamine Recreational Drug Use Frequency: Not Used In Over 1 Year - Living Situation & Occupation Living situation: Reports: Occupation: Employed Review of Systems - Review of Systems Review Of Systems: Comprehensive ROS is negative, except as noted in HPI. ED EXAM, GENERAL - Physical Exam Exam: See Below General Appearance: Alert, WD/WN, Mild Distress Ears: Normal External Exam, Hearing Grossly Normal Nose: Normal Inspection Throat/Mouth: Normal Inspection, Normal Lips, Normal Voice, No Airway Compromise Head: Atraumatic Neck: Normal Inspection, Supple Respiratory/Chest: No Respiratory Distress, No Accessory Muscle Use Cardiovascular: Regular Rate, Rhythm GI/Abdominal: No Distention (Male) Exam: Deferred Rectal (Males) Exam: Deferred Back Exam: Normal Inspection Extremities: Normal Capillary Refill, Limited Range of Motion (Right shoulder). No: Normal Inspection (Bandage noted to right anterior shoulder area), Normal Range of Motion, Non-Tender (Tenderness noted to right anterior shoulder) Neurological: Alert, Oriented, Normal Cognition Psychiatric: Normal Affect Skin Exam: Warm, Dry, Intact, Normal Color, No Rash Lymphatic: No Adenopathy Course - Vital Signs Text/Narrative:: Upon assessment, the patient does have a bandage noted to his right anterior shoulder area. Range of motion and ability were not assessed due to the patient's severity of pain. He is only slightly comfortable when holding it bent at his side and immobilized. I did explain to him that this was not an acute injury and that he needed to follow-up with the orthopedic surgeon regarding his pain complaints as he just left the clinic. Patient will be discharged to home. Last Recorded V/S: Last Vital Signs Temp 97.9 F 07/15/20 11:13 Pulse 90 07/15/20 11:13 Resp 18 07/15/20 11:13 BP 142/88 H 07/15/20 11:13 Pulse Ox 100 07/15/20 11:13 Departure - Departure Time of Disposition: 11:26 Disposition: Home, Self-Care 01 Condition: Good Clinical Impression: Pain in right shoulder Qualifiers: Chronicity: chronic Qualified Code(s): M25.511 - Pain in right shoulder - Discharge Information Instructions: Pain Medicine Instructions, [id number] Referrals: PCP,None [Primary Care Provider] - Forms: ED Department Discharge Additional Instructions: You were seen in the emergency department today after receiving a cortisone injection by an orthopedic surgeon at [facility] prior to arrival. Recommend that you call [facility] and speak with the doctor's nurse regarding the need for narcotic medication. Sepsis Event Note (ED) - Evaluation Sepsis Screening Result: No Definite Risk - Focused Exam Vital Signs: Vital Signs Temp Pulse Resp BP Pulse Ox 07/15/20 11:13 97.9 F 90 18 142/88 H 100
== END 2020-07-15 11:40 | disposition home or self-care (01) ==
LOC: JD.ED 10:57
DX: G89.29 Other chronic pain (principal); M25.511 Pain in right shoulder; Z91.030 Bee allergy status; Z88.5 Allergy status to narcotic agent
CPT/HCPCS: 99282; 99283

== ENCOUNTER 2021-12-25 13:11 | Emergency (ER) | payer BC ==
[2021-12-25 13:44] VITALS: BP 162/102; PULSE 91
[2021-12-25] MEDS ORDERED: Acetaminophen/HYDROcodone 325-5 MG Tab PO ONE (14:22)
== END 2021-12-25 16:09 | disposition home or self-care (01) ==
LOC: JD.ED 13:11
DX: S16.1XXA Strain of muscle, fascia and tendon at neck level, initial encounter (principal); S00.83XA Contusion of other part of head, initial encounter; Z91.030 Bee allergy status; Z88.8 Allergy status to other drugs, medicaments and biological substances; Z79.899 Other long term (current) drug therapy; Z90.49 Acquired absence of other specified parts of digestive tract; W01.10XA Fall on same level from slipping, tripping and stumbling with subsequent striking against unspecified object, initial encounter
CPT/HCPCS: 70450; 70486; 72125; 99284; A9270

== ENCOUNTER 2022-01-09 11:04 | Emergency (ER) | payer BC ==
[2022-01-09] MEDS ORDERED: Morphine 2 MG/ML SYRINGE IVPUSH ONE (11:41)
[2022-01-09] MEDS ORDERED: Morphine 2 MG/ML SYRINGE IM ONE (12:04)
[2022-01-09 12:47] VITALS: BP 129/85; PULSE 61
== END 2022-01-09 12:49 | disposition home or self-care (01) ==
LOC: JD.ED 11:04
DX: S06.0X0A Concussion without loss of consciousness, initial encounter (principal); S16.1XXA Strain of muscle, fascia and tendon at neck level, initial encounter; K21.9 Gastro-esophageal reflux disease without esophagitis; Z91.030 Bee allergy status; Z88.8 Allergy status to other drugs, medicaments and biological substances; W01.0XXA Fall on same level from slipping, tripping and stumbling without subsequent striking against object, initial encounter
CPT/HCPCS: 70450; 72125; 96372; 99283; J2270

== ENCOUNTER 2022-08-07 15:17 | Emergency (ER) | payer BC ==
[2022-08-07] MEDS ORDERED: Aspirin 81 MG Tab.Chew PO ONE (15:44)
[2022-08-07 15:59] LABS: BASOPHILS ABSOLUTE AUTO 0.03 K/mm3 (0.01-0.08); BASOPHILS PERCENT AUTO 0.4 % (0.1-1.2); EOSINOPHILS ABSOLUTE AUTO 0.09 K/mm3 (0.04-0.54); EOSINOPHILS PERCENT AUTO 1.1 (0.8-7.0); HEMATOCRIT 45.9 % (40.1-51.0); IMMATURE GRAN ABSOLUTE AUTO 0.02 K/mm3 (0.00-0.10); IMMATURE GRAN PERCENT AUTO 0.2 % (<=1.0); LYMPHOCYTES ABSOLUTE AUTO 2.33 K/mm3 (1.32-3.57); LYMPHOCYTES PERCENT AUTO 28.9 % (21.8-53.1); MEAN CORPUSCULAR HEMOGLOBIN 30.1 pg (25.7-32.2); MEAN CORPUSCULAR HGB CONC 34.9 g/dl (32.2-35.5); MEAN CORPUSCULAR VOLUME 86.3 fl (79.0-92.2); MEAN PLATELET VOLUME 9.2 fl (9.4-12.3); MONOCYTES ABSOLUTE AUTO 0.63 K/mm3 (0.30-0.82); MONOCYTES PERCENT AUTO 7.8 % (5.3-12.2); NEUTROPHILS ABSOLUTE AUTO 4.95 K/mm3 (1.78-5.38); NEUTROPHILS PERCENT AUTO 61.6 % (34.0-67.9); PLATELET COUNT,PLT 315 K/mm3 (163-337); RED BLOOD CELL COUNT 5.32 M/mm3 (4.63-6.08); WHITE BLOOD CELL COUNT,WBC 8.05 K/mm3 (4.23-9.07)
[2022-08-07 16:16] LABS: A/G RATIO 1.3 (1-2); ALANINE AMINOTRANSFERASE,ALT 30 U/L (16-63); ALKALINE PHOSPHATASE 71 U/L (46-116); ASPARTATE AMNIOTRANSFERASE,AST 19 U/L (15-37); BILIRUBIN TOTAL 0.8 mg/dL (0.2-1.0); BLOOD UREA NITROGEN,BUN 11 mg/dL (7-18); CALCIUM 9.3 mg/dL (8.5-10.1); CARBON DIOXIDE,CO2 28 mEq/L (21-32); CHLORIDE,CL 107 mEq/L (98-107); CREATINE KINASE,CK 262 U/L (39-308); EST CRCL DRUG DOSING (CG) 101.31 mL/min; ESTIMATED GFR 94 mL/min (>60); GLUCOSE RANDOM 67 mg/dL (70-99); MAGNESIUM 2.6 mg/dL (1.8-2.4); PROTEIN TOTAL,TP 7.1 g/dl (6.4-8.2); SODIUM,NA 140 mEq/L (136-145)
[2022-08-07 16:20] LABS: TROPONIN I HIGH SENSITIVITY < 4 pg/mL (<=76)
[2022-08-07 16:21] LABS: PTT,PARTIAL THROMBOPLSTIN TIME 27.3 SECONDS (21.7-31.4)
[2022-08-07 16:22] LABS: INR 0.98; PROTHROMBIN TIME 10.5 SECONDS (9.7-12.0)
[2022-08-07 16:28] LABS: D-DIMER QUANTITATIVE < 0.19 mg/L (0.19-0.50)
[2022-08-07] MEDS ORDERED: Ketorolac 15 MG/ML SDV IVPUSH ONE (17:00)
[2022-08-07 17:11] LABS: APPEARANCE,URINE SLT CLOUDY (Clear); BILIRUBIN,URINE NEGATIVE (Negative); COLOR,URINE YELLOW (Yellow); GLUCOSE,URINE NEGATIVE (Negative); KETONES,URINE NEGATIVE (Negative); LEUKOCYTE ESTERASE,URINE NEGATIVE (Negative); NITRITE,URINE NEGATIVE (Negative); OCCULT BLOOD,URINE NEGATIVE (Negative); PH,URINE 7.5 (5.0-8.0); PROTEIN,URINE NEGATIVE (Negative); UROBILINOGEN,URINE 0.2 (0.2-1.0)
[2022-08-07] MEDS ORDERED: Ketorolac 30 MG/ML SDV IM ONE ×2 (17:21→17:32)
[2022-08-07 17:26] LABS: BARBITURATE SCREEN,URINE NEGATIVE (CUTOFF=200); BENZODIAZEPINES SCREEN,URINE NEGATIVE (CUTOFF=150); BUPRENORPHINE SCREEN,URINE NEGATIVE (CUTOFF=10); METHADONE SCREEN, URINE NEGATIVE (CUT0FF=200); METHAMPHETAMINES SCREEN, URINE NEGATIVE (CUTOFF=500); OXYCODONE SCREEN,URINE NEGATIVE (CUT0FF=100); PROPOXYPHENE SCREEN,URINE NEGATIVE (CUTOFF=300); THC SCREEN,URINE 20 NG/ML NEGATIVE (CUTOFF=50)
[2022-08-07] MEDS ORDERED: Ketorolac 15 MG/ML SDV IM ONE (17:34)
[2022-08-07 17:40] LABS: AMPHETAMINES SCREEN, URINE NEGATIVE (CUTOFF=500)
[2022-08-07] MEDS ORDERED: LORazepam 1 MG Tab PO ONE (17:53)
[2022-08-07 18:42] VITALS: BP 117/75; PULSE 68
== END 2022-08-07 18:40 | disposition home or self-care (01) ==
LOC: JD.ED 15:17
DX: S29.011A Strain of muscle and tendon of front wall of thorax, initial encounter (principal); K21.9 Gastro-esophageal reflux disease without esophagitis; Z79.899 Other long term (current) drug therapy; Z91.030 Bee allergy status; Z88.8 Allergy status to other drugs, medicaments and biological substances
CPT/HCPCS: 36415; 71045; 71250; 80053; 80306; 80307; 81003; 82550; 83735; 83880; 84484; 85025; 85379; 85610; 85730; 96372; 99285; A9270; J1885; 93010; 99284

== ENCOUNTER 2022-09-28 10:13 | Emergency (ER) | payer BC ==
[2022-09-28 11:26] VITALS: BP 132/84; PULSE 81
== END 2022-09-28 11:25 | disposition home or self-care (01) ==
LOC: JD.ED 10:13
DX: M25.561 Pain in right knee (principal); K21.9 Gastro-esophageal reflux disease without esophagitis; Z91.030 Bee allergy status; Z88.8 Allergy status to other drugs, medicaments and biological substances; Z79.899 Other long term (current) drug therapy
CPT/HCPCS: 99282; 99283

== ENCOUNTER 2023-10-15 05:10 | Emergency (ER) | payer BC ==
[2023-10-15 06:15] LABS: BASOPHILS ABSOLUTE AUTO 0.1 K/mm3 (0.0-0.2); EOSINOPHILS ABSOLUTE AUTO 0.2 K/mm3 (0.0-0.4); EOSINOPHILS PERCENT AUTO 2.5 % (0.0-6.0); HEMATOCRIT 46.4 % (42.0-52.0); HEMOGLOBIN 15.9 gm/dl (14.0-18.0); IMMATURE GRAN ABSOLUTE AUTO 0.03 K/mm3 (0.00-0.05); IMMATURE GRAN PERCENT AUTO 0.4 % (0.0-0.4); LYMPHOCYTES ABSOLUTE AUTO 1.6 K/mm3 (1.0-4.8); LYMPHOCYTES PERCENT AUTO 20.2 % (24.0-44.0); MEAN CORPUSCULAR HEMOGLOBIN 29.7 pg (28.0-32.0); MEAN CORPUSCULAR HGB CONC 34.3 g/dl (32.0-36.0); MEAN CORPUSCULAR VOLUME 86.7 fl (83.0-99.0); MEAN PLATELET VOLUME 8.9 fl (9.4-12.4); MONOCYTES ABSOLUTE AUTO 0.6 K/mm3 (0.0-0.8); NEUTROPHILS ABSOLUTE AUTO 5.4 K/mm3 (1.8-7.7); NEUTROPHILS PERCENT AUTO 67.9 % (41.0-71.0); PLATELET COUNT,PLT 289 K/mm3 (150-400); RED BLOOD CELL COUNT 5.35 M/mm3 (4.52-5.90); WHITE BLOOD CELL COUNT,WBC 7.92 K/mm3 (3.9-11.3)
[2023-10-15 06:30] LABS: INR 0.97; PROTHROMBIN TIME 10.3 SECONDS (9.7-12.0)
[2023-10-15 06:31] LABS: A/G RATIO 1.5 (1-2); ALBUMIN 3.9 g/dl (3.4-5.0); ANION GAP 11.1 (5-15); BILIRUBIN TOTAL 0.3 mg/dL (0.2-1.0); CALCIUM 9.5 mg/dL (8.5-10.1); EST CRCL DRUG DOSING (CG) 100.23 mL/min; POTASSIUM,K 4.1 mEq/L (3.5-5.1); PROTEIN TOTAL,TP 6.5 g/dl (6.4-8.2)
[2023-10-15 06:32] LABS: PTT,PARTIAL THROMBOPLSTIN TIME 27.2 SECONDS (21.7-31.4)
[2023-10-15 07:50] VITALS: BP 147/92; PULSE 91
== END 2023-10-15 08:09 | disposition home or self-care (01) ==
LOC: JD.ED 05:10
DX: M79.652 Pain in left thigh (principal); K21.9 Gastro-esophageal reflux disease without esophagitis; F17.210 Nicotine dependence, cigarettes, uncomplicated; Z79.899 Other long term (current) drug therapy; Z88.8 Allergy status to other drugs, medicaments and biological substances; Z91.030 Bee allergy status
CPT/HCPCS: 36415; 80053; 85025; 85384; 85610; 85730; 93971-26-LT; 93971-LT; 99283; 99284

== ENCOUNTER 2024-07-21 15:08 | Emergency (ER) | payer BC ==
[2024-07-21] MEDS: Ketorolac 60 MG/2 ML SDV IM ONE (18:52)
[2024-07-21 18:57] VITALS: BP 158/94
[2024-07-21 19:15] VITALS: PULSE 86
== END 2024-07-21 19:00 | disposition home or self-care (01) ==
LOC: JD.ED 15:08
DX: M79.645 Pain in left finger(s) (principal); Z90.49 Acquired absence of other specified parts of digestive tract; Z88.8 Allergy status to other drugs, medicaments and biological substances; Z91.030 Bee allergy status; Z79.899 Other long term (current) drug therapy
CPT/HCPCS: 29125; 73140-26-FA; 73140-FA; 96372; 99283; 99283-25; J1885

== ENCOUNTER 2024-09-03 08:40 | Emergency (ER) | payer BC ==
[2024-09-03 10:00] VITALS: BP 143/88; PULSE 74
== END 2024-09-03 09:57 | disposition home or self-care (01) ==
LOC: JD.ED 08:40
DX: M25.561 Pain in right knee (principal); K21.9 Gastro-esophageal reflux disease without esophagitis; Z91.030 Bee allergy status; Z88.8 Allergy status to other drugs, medicaments and biological substances; Z79.899 Other long term (current) drug therapy; Z90.49 Acquired absence of other specified parts of digestive tract
CPT/HCPCS: 73562-26-RT; 73562-RT; 99283; 99284